=== PATIENT | male | born 1940 | race Caucasian/White ===

== ENCOUNTER 2016-10-09 14:12 | Day surgery (SDC) | payer OTHER ==
[~2016-10-09] VITALS: Ht 172.7 cm; Wt 72.6 kg
[~2016-10-09 14:12] MED LIST: BENZTROPINE MESY1 MG PO; CEFTIN500 MG PO; FLOMAX0.4 MG PO; LORAZEPAM0.5 MG PO; OMEPRAZOLE20 MG PO; RISPERDAL2 MG PO; TAMSULOSIN HCL0.4 MG PO
== END 2016-10-10 16:46 | disposition home or self-care (01) ==
LOC: CATH 14:12
PROC: 02HV33Z Insertion of Infusion Device into Superior Vena Cava, Percutaneous Approach (ICD-10-PCS; principal; 2016-10-09)
DX: C31.0 Malignant neoplasm of maxillary sinus (principal)
CPT/HCPCS: C1752; C1894; J0690; J1644; J2250; J3010; S0020

== ENCOUNTER 2016-11-26 13:04 | Emergency (ER) | payer OTHER ==
[~2016-11-26] VITALS: Ht 175.3 cm; Wt 64.2 kg
[2016-11-26 13:48] LABS: ADD MIUA? YES; BILIRUBIN NEGATIVE; BLOOD SMALL; COLOR YELLOW ((YELLOW)); GLUCOSE (STRIP) NEGATIVE; KETONES NEGATIVE; LEUKOCYTES LARGE; NITRITE NEGATIVE; PROTEIN (STRIP) 30; SPECIFIC GRAVITY 1.008 (1.000-1.030); UROBILINOGEN 0.2 MG/DL (0.2-1.0)
[2016-11-26 13:49] LABS: EOSINOPHIL (%) 0.3 % (0-5); HEMATOCRIT 32.3 % (38.0-50.0); IMMATURE GRANULOCYTE (%) 0.3 % (0.0-0.7); INSTRUMENT ABS NEUTROPHIL CT 3.1 K/uL; LYMPHOCYTE COUNT 0.3 K/uL (1.0-2.8); MCHC 33.7 G/DL (30.0-36.0); MCV 85.9 FL (86-99); MEAN PLAT.VOLUME 9.7 uM^3 (9.0-12.4); MONOCYTE (%) 11.5 % (3-12); MONOCYTE COUNT 0.5 K/uL (0-0.8); NEUTROPHIL (%) 78.9 % (45-76); NEUTROPHIL COUNT 3.1 K/uL (1.8-6.4); PLATELET COUNT 114 K/uL (156-360); RBC DIS.WIDTH-CV 14.6 % (11.8-14.6); RBC DIS.WIDTH-SD 43.7 % (39-53); RED BLOOD COUNT 3.76 M/uL (4.00-5.50); WHITE BLOOD COUNT 3.9 K/uL (4.1-10.2)
[2016-11-26 13:57] LABS: CHLORIDE 98 mEq/L (99-109); SODIUM 134 mEq/L (136-147)
[2016-11-26 13:58] LABS: GLUCOSE 99 mg/dL (70-99)
[2016-11-26 13:59] LABS: POTASSIUM 4.4 mEq/L (3.7-5.4)
[2016-11-26 14:00] LABS: ANION GAP 10 MEQ/L (2-14)
[2016-11-26 14:02] LABS: GFR ESTIMATE (CALCULATED) > 59 mL/min/
[2016-11-26 14:02] LABS: BACTERIA 1+ /HPF; CASTS NONE SEEN /LPF; EPITHELIAL CELLS 1+ /HPF; MUCUS NONE SEEN /LPF; RED BLOOD CELLS 0-5 /HPF (0-5); WHITE BLOOD CELLS TNTC /HPF (0-5)
[2016-11-26 14:03] LABS: CRYSTALS NONE SEEN
[2016-11-26 14:03] LABS: UREA NITROGEN (BUN) 20 mg/dL (9-23)
[2016-11-26] MEDS ORDERED: CIPRO500 MG PO (14:49)
[2016-11-26] MEDS ORDERED: BACTRIM,SEPT1 TABLET PO (14:53)
[2016-11-26 15:30] VITALS: BP 133/84
== END 2016-11-26 16:02 | disposition home or self-care (01) ==
LOC: EME 13:04
PROVIDERS: Emergency Medicine
DX: T83.098A Other mechanical complication of other urinary catheter, initial encounter (principal); R33.9 Retention of urine, unspecified; N39.0 Urinary tract infection, site not specified; Z87.891 Personal history of nicotine dependence
CPT/HCPCS: 80048; 81003; 85025; 87077; 87086; 99281; 99285

== ENCOUNTER 2016-11-26 17:17 | Emergency (ER) | payer OTHER ==
[~2016-11-26] VITALS: Ht 175.3 cm; Wt 66.4 kg
[~2016-11-26 17:17] MED LIST changes: +BACTRIM,SEPT1 TABLET PO; +CIPRO500 MG PO
[2016-11-26 21:54] VITALS: BP 125/89
== END 2016-11-26 22:17 | disposition home or self-care (01) ==
LOC: EME 17:17
DX: T83.098A Other mechanical complication of other urinary catheter, initial encounter (principal); Z87.891 Personal history of nicotine dependence

== ENCOUNTER 2016-11-29 19:24 | Emergency (ER) | payer OTHER ==
[~2016-11-29] VITALS: Ht 175.3 cm; Wt 65.9 kg
[2016-11-29 20:24] VITALS: BP 113/80
== END 2016-11-29 20:29 | disposition home or self-care (01) ==
LOC: EME 19:24
PROC: 0T9B70Z Drainage of Bladder with Drainage Device, Via Natural or Artificial Opening (ICD-10-PCS; principal; 2016-11-29)
DX: Z46.6 Encounter for fitting and adjustment of urinary device (principal); Z85.828 Personal history of other malignant neoplasm of skin; Z87.891 Personal history of nicotine dependence
CPT/HCPCS: 99281; 99284

== ENCOUNTER 2016-12-02 07:48 | Emergency (ER) | payer OTHER ==
[~2016-12-02] VITALS: Ht 170.2 cm; Wt 66.0 kg
[2016-12-02 10:43] LABS: ADD MIUA? YES; BILIRUBIN NEGATIVE; BLOOD SMALL; COLOR YELLOW ((YELLOW)); GLUCOSE (STRIP) NEGATIVE; KETONES NEGATIVE; LEUKOCYTES SMALL; NITRITE NEGATIVE; PROTEIN (STRIP) 100; UROBILINOGEN 0.2 MG/DL (0.2-1.0)
[2016-12-02 11:11] LABS: BACTERIA NONE SEEN /HPF; EPITHELIAL CELLS RARE /HPF; MUCUS TRACE /LPF; RED BLOOD CELLS 15-20 /HPF (0-5); UCUL ADDED? NO; WHITE BLOOD CELLS 30-40 /HPF (0-5)
[2016-12-02 11:57] VITALS: BP 143/84
== END 2016-12-02 12:06 | disposition home or self-care (01) ==
LOC: EME 07:48
PROVIDERS: Emergency Medicine
PROC: 0T2BX0Z Change Drainage Device in Bladder, External Approach (ICD-10-PCS; principal; 2016-12-02)
DX: T83.098A Other mechanical complication of other urinary catheter, initial encounter (principal); R33.9 Retention of urine, unspecified; Z87.891 Personal history of nicotine dependence
CPT/HCPCS: 81003; 99281; 99283

== ENCOUNTER → 2017-04-16 | Outpatient (CLI) | payer OTHER ==
[~2017-04-16] MED LIST changes: +ABILIFY2 MG PO
== END | disposition home or self-care (01) ==
LOC: AMB 07:57
DX: Z45.2 Encounter for adjustment and management of vascular access device (principal); I87.8 Other specified disorders of veins; Z92.21 Personal history of antineoplastic chemotherapy

== ENCOUNTER 2017-10-05 16:58 | Emergency (ER) | payer OTHER ==
[~2017-10-05] VITALS: Ht 175.3 cm; Wt 61.4 kg
[~2017-10-05 16:58] MED LIST changes: +ARIPIPRAZOLE5 MG PO; +BACTRIM,SEPT1 TABLE1 PO; +FUROSEMIDE20 MG PO; +PEN-VEE K,VEET500 MG PO; +SODIUM CHLORIDE1 G1 PO
[2017-10-05 17:16] LABS: APPEARANCE TURBID ((CLEAR)); BILIRUBIN NEGATIVE; BLOOD NEGATIVE; COLOR YELLOW ((YELLOW)); GLUCOSE (STRIP) NEGATIVE; KETONES NEGATIVE; LEUKOCYTES NEGATIVE; NITRITE NEGATIVE; PROTEIN (STRIP) 100; SPECIFIC GRAVITY 1.023 (1.000-1.030); UROBILINOGEN 0.2 MG/DL (0.2-1.0)
[2017-10-05 17:32] LABS: BACTERIA 1+ /HPF; EPITHELIAL CELLS 1+ /HPF; MUCUS TRACE /LPF; RED BLOOD CELLS 30-40 /HPF (0-5); UCUL ADDED? YES; WHITE BLOOD CELLS 20-30 /HPF (0-5)
[2017-10-05 19:10] LABS: HEMATOCRIT 37.4 % (38.0-50.0); HEMOGLOBIN 12.6 G/DL (12.5-16.6); MCHC 33.7 G/DL (30.0-36.0); PLATELET COUNT 181 K/uL (156-360); RBC DIS.WIDTH-CV 13.5 % (11.8-14.6); WHITE BLOOD COUNT 10.8 K/uL (4.1-10.2)
[2017-10-05] MEDS ORDERED: KEFLEX500 MG PO (19:16)
[2017-10-05] MEDS ORDERED: PYRIDIUM100 MG PO (19:16)
[2017-10-05 19:21] LABS: ALBUMIN 3.8 g/dL (3.2-4.8); CHLORIDE 104 mEq/L (99-109); POTASSIUM 3.8 mEq/L (3.7-5.4); SODIUM 140 mEq/L (136-147)
[2017-10-05 19:24] LABS: GLUCOSE 104 mg/dL (70-99); TOTAL PROTEIN 6.8 g/dL (6.4-8.3)
[2017-10-05 19:26] LABS: TOTAL BILIRUBIN 0.7 mg/dL (0.0-1.0)
[2017-10-05 19:27] LABS: ALKALINE PHOSPHATASE 97 IU/L (3-129); CREATININE 0.9 mg/dL (0.6-1.3); GFR ESTIMATE (CALCULATED) > 59 mL/min/ (58.99-99999)
[2017-10-05 19:29] LABS: AST (GOT) 12 IU/L (2-34); UREA NITROGEN (BUN) 22 mg/dL (9-23)
[2017-10-05 19:30] LABS: ALT (GPT) 10 IU/L (3-49)
[2017-10-05 19:55] VITALS: BP 109/61
== END 2017-10-05 19:58 | disposition home or self-care (01) ==
LOC: EME 16:58
PROVIDERS: Physician Assistant
DX: N39.0 Urinary tract infection, site not specified (principal); Z87.440 Personal history of urinary (tract) infections; F41.9 Anxiety disorder, unspecified; Z85.828 Personal history of other malignant neoplasm of skin; Z87.891 Personal history of nicotine dependence
CPT/HCPCS: 80053; 81003; 85027; 87077; 87086; 87186; 99281; 99284; J0696

== ENCOUNTER 2017-10-24 23:25 | Inpatient (IN) | payer OTHER ==
[~2017-10-24] VITALS: Ht 175.3 cm; Wt 58.3 kg
[~2017-10-24 23:25] MED LIST changes: +ABILIFY15 MG PO; -ARIPIPRAZOLE5 MG PO; +KEFLEX500 MG PO; +PYRIDIUM100 MG PO
[2017-10-25 00:52] LABS: HEMATOCRIT 30.6 % (38.0-50.0); MCH 29.4 PG (29.0-34.0); MCHC 33.7 G/DL (30.0-36.0); MCV 87.4 FL (86-99); PLATELET COUNT 186 K/uL (156-360); RBC DIS.WIDTH-CV 13.6 % (11.8-14.6); RBC DIS.WIDTH-SD 43.6 % (39-53); WHITE BLOOD COUNT 5.5 K/uL (4.1-10.2)
[2017-10-25 00:53] LABS: HEMOGLOBIN 10.3 G/DL (12.5-16.6)
[2017-10-25 01:01] LABS: CHLORIDE 104 mEq/L (99-109); POTASSIUM 3.3 mEq/L (3.7-5.4); SODIUM 137 mEq/L (136-147)
[2017-10-25 01:03] LABS: GLUCOSE 124 mg/dL (70-99)
[2017-10-25 01:07] LABS: CREATININE 0.8 mg/dL (0.6-1.3); GFR ESTIMATE (CALCULATED) > 59 mL/min/ (58.99-99999)
[2017-10-25 01:08] LABS: UREA NITROGEN (BUN) 14 mg/dL (9-23)
[2017-10-25 01:27] LABS: APPEARANCE CLOUDY ((CLEAR)); BILIRUBIN NEGATIVE; BLOOD SMALL; COLOR YELLOW ((YELLOW)); GLUCOSE (STRIP) NEGATIVE; KETONES NEGATIVE; LEUKOCYTES LARGE; NITRITE NEGATIVE; PROTEIN (STRIP) 30; SPECIFIC GRAVITY 1.013 (1.000-1.030)
[2017-10-25 01:44] LABS: BACTERIA 2+ /HPF; EPITHELIAL CELLS RARE /HPF; MUCUS NONE SEEN /LPF; RED BLOOD CELLS 0-5 /HPF (0-5); WHITE BLOOD CELLS 15-20 /HPF (0-5)
[2017-10-25] MEDS ORDERED: LEVAQUIN500 MG PO ×2 (02:53→11:55)
[2017-10-25 05:59] VITALS: BP 150/74
[2017-10-25 08:30] VITALS: BP 149/77
[2017-10-25] MEDS ORDERED: HIPREX1 GM PO (10:50)
[2017-10-25 11:58] VITALS: BP 140/81
[2017-10-25 16:24] VITALS: BP 153/89
[2017-10-25 23:44] VITALS: BP 136/74
[2017-10-26 06:07] LABS: HEMATOCRIT 30.4 % (38.0-50.0); HEMOGLOBIN 10.2 G/DL (12.5-16.6); MCH 29.3 PG (29.0-34.0); MCHC 33.6 G/DL (30.0-36.0); MCV 87.4 FL (86-99); PLATELET COUNT 178 K/uL (156-360); RBC DIS.WIDTH-CV 13.5 % (11.8-14.6); RBC DIS.WIDTH-SD 43.2 % (39-53); RED BLOOD COUNT 3.48 M/uL (4.00-5.50); WHITE BLOOD COUNT 4.3 K/uL (4.1-10.2)
[2017-10-26 06:31] LABS: CHLORIDE 97 MEQ/L (99-109); CREATININE 0.9 MG/DL (0.6-1.3); GFR ESTIMATE (CALCULATED) > 59 mL/min/ (58.99-99999); GLUCOSE 113 mg/dL (70-99); POTASSIUM 3.3 MEQ/L (3.7-5.4); SODIUM 135 MEQ/L (136-147); UREA NITROGEN (BUN) 13 mg/dL (9-23)
[2017-10-26 08:30] VITALS: BP 120/75
[2017-10-26 17:00] VITALS: BP 136/76
[2017-10-26 23:56] VITALS: BP 132/73
[2017-10-27 08:19] VITALS: BP 172/84
[2017-10-27] MEDS ORDERED: ARIPIPRAZOLE10 MG PO (14:23)
[2017-10-27] MEDS ORDERED: COGENTIN0.5 MG PO (14:24)
[2017-10-27] MEDS ORDERED: DONEPEZIL HCL5 MG PO (14:26)
[2017-10-27] MEDS ORDERED: MIRTAZAPINE7.5 MG PO (14:26)
[2017-10-27] MEDS ORDERED: CIPRO500 MG PO (14:41)
[2017-10-27 15:27] VITALS: BP 146/84
== END 2017-10-27 18:37 | disposition home or self-care (01) | DRG 690 ==
LOC: EME 23:25 → 3EAST 10-25 04:30 → EDOF 10-25 04:30 → CANRESERV 10-25 04:40 → ENRESERV 10-25 04:40 → 3EAST 10-25 05:43
PROVIDERS: Hospitalist; Nurse Practitioner Family
DX: N39.0 Urinary tract infection, site not specified (principal); F20.0 Paranoid schizophrenia; F41.9 Anxiety disorder, unspecified; D64.9 Anemia, unspecified; E87.6 Hypokalemia; R62.50 Unspecified lack of expected normal physiological development in childhood; N31.2 Flaccid neuropathic bladder, not elsewhere classified; N32.3 Diverticulum of bladder; F01.50 Vascular dementia, unspecified severity, without behavioral disturbance, psychotic disturbance, mood disturbance, and anxiety; K21.9 Gastro-esophageal reflux disease without esophagitis; N31.8 Other neuromuscular dysfunction of bladder; I10 Essential (primary) hypertension; B96.89 Other specified bacterial agents as the cause of diseases classified elsewhere; Z87.440 Personal history of urinary (tract) infections; Z68.1 Body mass index [BMI] 19.9 or less, adult; Z87.891 Personal history of nicotine dependence; Z82.49 Family history of ischemic heart disease and other diseases of the circulatory system; Z85.828 Personal history of other malignant neoplasm of skin
CPT/HCPCS: 71045; 80048; 81003; 85027; 87077; 87086; 87186; 90839; 99281; 99284; J0696; J1650